=== PATIENT | female | born 1945 | race Two or more races ===

== ENCOUNTER 2018-07-26 20:40 | Emergency (ER) | payer OTHER ==
[~2018-07-26] VITALS: Ht 152.4 cm; Wt 40.4 kg
[2018-07-26] MEDS ORDERED: KETO10TA2 PO (21:59)
[2018-07-26] MEDS ORDERED: ORPHENADRINE C100 MG PO (21:59)
== END 2018-07-26 22:04 | disposition home or self-care (01) ==
LOC: ER 20:40
DX: G89.11 Acute pain due to trauma (principal); R07.81 Pleurodynia

== ENCOUNTER 2019-05-15 14:50 | Emergency (ER) | payer OTHER ==
[~2019-05-15] VITALS: Ht 152.4 cm; Wt 40.4 kg
[~2019-05-15 14:50] MED LIST: KETO10TA2 PO; ORPHENADRINE C100 MG PO
== END 2019-05-15 17:58 | disposition left against medical advice (07) ==
LOC: ER 14:50
DX: R53.1 Weakness (principal)

== ENCOUNTER 2019-06-18 00:42 | Emergency (ER) | payer OTHER ==
[~2019-06-18] VITALS: Ht 152.4 cm; Wt 40.8 kg
[2019-06-18] MEDS ORDERED: DOLOGESIC 500-1 EACH PO (06:18)
== END 2019-06-18 06:39 | disposition home or self-care (01) ==
LOC: ER 00:42
DX: R51 Headache (principal)

== ENCOUNTER 2019-07-15 17:08 | Emergency (ER) | payer OTHER ==
[~2019-07-15] VITALS: Ht 152.4 cm; Wt 40.4 kg
[~2019-07-15 17:08] MED LIST changes: +DOLOGESIC 500-1 EACH PO
== END 2019-07-15 17:54 | disposition home or self-care (01) ==
LOC: ER 17:08
DX: M54.89 Other dorsalgia (principal)

== ENCOUNTER 2019-08-30 18:44 | Emergency (ER) | payer OTHER ==
[~2019-08-30] VITALS: Ht 152.4 cm; Wt 42.2 kg
[2019-08-31] MEDS ORDERED: PROMETH-CODEIN 65 ML PO (01:00)
[2019-08-31] MEDS ORDERED: TESSALON PERLE100 M1 PO (01:00)
[2019-08-31] MEDS ORDERED: augmentin PO (01:00)
== END 2019-08-31 01:36 | disposition home or self-care (01) ==
LOC: ER 18:44
DX: R05 Cough (principal); R30.0 Dysuria